=== PATIENT | female | born 1955 | race Caucasian/White ===

== ENCOUNTER 2019-06-10 17:11 | Inpatient (IN) | payer MEDICAID ==
[~2019-06-10] VITALS: Ht 167.6 cm; Wt 87.6 kg
[2019-06-10 19:12] LABS: Basophils # (auto) 0.1 uL; Basophils % (auto) 0.5 % (0.0-2.0); Eosinophils # (auto) 0 uL; Eosinophils % (auto) 0.1 % (0.0-7.0); Hematocrit 49.4 % (36.0-46.0); Hemoglobin 17.2 g/dL (12.2-16.2); Lymphocytes # (auto) 1.1 uL; Lymphocytes % (auto) 7.6 % (10.0-50.0); Mean Corpuscular Hemoglobin 33.2 pg (28.0-32.0); Mean Corpuscular Hgb Conc. 34.9 g/dL (32.0-36.0); Mean Corpuscular Volume 95.2 fL (80.0-100.0); Monocytes % (auto) 7.2 % (0.0-12.0); Neutrophils % (auto) 84.6 % (37.0-80.0); Nucleated Red Blood Cells % 0.1 %; Platelet Count (auto) 253 10^3/uL (140-450); Red Cell Distribution Width 13.7 % (11.8-14.3); White Blood Cell 14.2 10^3/uL (4.4-10.8)
[2019-06-10 19:31] LABS: Albumin 3.2 g/dL (3.4-5.0); Anion Gap 7 (5-15); Blood Urea Nitrogen 8 mg/dL (7-18); Calcium 8.6 mg/dL (8.5-10.1); Carbon Dioxide 31 mmol/L (21-32); Chloride 94 mmol/L (98-107); Glucose 104 mg/dL (74-106); Potassium 3.3 mmol/L (3.5-5.1); Sodium 132 mmol/L (136-145)
[2019-06-10 19:36] LABS: Alanine Aminotransferase 18 U/L (13-56); Alkaline Phosphatase 99 U/L (45-117); Aspartate Aminotransferase 19 U/L (15-37); BUN/Creatinine Ratio 14.8; Bilirubin, Total 0.7 mg/dL (0.2-1.0); GFR African American 147 mL/min; GFR Non-African American 122 mL/min; Total Protein 6.7 g/dL (6.4-8.2)
[2019-06-10] MEDS ORDERED: ONDANSETRON HCL 4 MG/2 ML VIAL IV ONE (20:15)
[2019-06-10] MEDS ORDERED: MORPHINE SULFATE 4 MG/ML SYR/VIAL IV ONE (20:15)
[2019-06-10 22:21] LABS: Urine Bacteria NONE SEEN /hpf (None Seen); Urine Blood Negative /uL (Negative); Urine Specific Gravity 1.009 (1.001-1.035); Urine WBC 6 /hpf (0 - 5)
[2019-06-11] MEDS ORDERED: MAGNESIUM CITRATE SOLUTION 300 ML BTL PO ONE (02:15)
[2019-06-11] MEDS ORDERED: LACTULOSE 20Gm/30ML SOLN PO ONE (02:15)
[2019-06-11] MEDS ORDERED: ACETAMINOPHEN 500 MG TAB PO PRN (04:30)
[2019-06-11] MEDS ORDERED: HYDROcodone-ACET 5/325MG TAB PO PRN (04:30)
[2019-06-11] MEDS ORDERED: ONDANSETRON HCL 4 MG/2 ML VIAL IV PRN (04:30)
[2019-06-11 06:59] LABS: Basophils # (auto) 0 uL; Basophils % (auto) 0.4 % (0.0-2.0); Eosinophils # (auto) 0 uL; Eosinophils % (auto) 0.2 % (0.0-7.0); Hematocrit 46.2 % (36.0-46.0); Hemoglobin 16.1 g/dL (12.2-16.2); Lymphocytes % (auto) 8.9 % (10.0-50.0); Mean Corpuscular Hemoglobin 33.3 pg (28.0-32.0); Mean Corpuscular Hgb Conc. 34.8 g/dL (32.0-36.0); Mean Corpuscular Volume 95.6 fL (80.0-100.0); Neutrophils # (auto) 9.1 uL; Neutrophils % (auto) 81.5 % (37.0-80.0); Nucleated Red Blood Cells % 0.1 %; Platelet Count (auto) 228 10^3/uL (140-450); Red Blood Cells 4.84 10^6/uL (4.0-5.20); Red Cell Distribution Width 13.8 % (11.8-14.3); White Blood Cell 11.1 10^3/uL (4.4-10.8)
[2019-06-11] MEDS ORDERED: POTASSIUM CHL 20 Meq TABLET PO ONE ×2 (07:00→16:00)
[2019-06-11 07:37] LABS: Alcohol, Urine < 3.0 mg/dL (0-5); Amphetamine Screen, Urine NEGATIVE (NEGATIVE); Barbiturate Scree,Urine NEGATIVE (NEGATIVE); Benzodiazephine Screen, Urine NEGATIVE (NEGATIVE); Cannabinoid Screen, Urine POSITIVE (NEGATIVE); Cocaine Screen, Urine NEGATIVE (NEGATIVE); Opiate Scree,Urine NEGATIVE (NEGATIVE); Phencyclidine Screen, Urine NEGATIVE (NEGATIVE)
[2019-06-11 08:04] LABS: BUN/Creatinine Ratio 18.5; Calcium 8.5 mg/dL (8.5-10.1); Potassium 3.4 mmol/L (3.5-5.1)
--- NOTE | 2019-06-11 08:30 | NUR ---
TELE ADMIT PATIENT WAS ADMITTED TO THE FLOOR AROUND 0800. SHE IS AWAKE, ALERT, AND ORIENTED. SHE IS LYING FLAT IN BED DUE TO REPORTS BY PATIENT OF A TAILBONE FRACTURE WELL A LEFT KNEE AND ANKLE FRACTURE. PATIENT USES A BEDPAN. SHE IS UNABLE TO WALK AT THIS TIME BUT STATES THAT SHE USES A WALKER AT HOME. SHE STATES SHE DOES NOT USE OXYGEN AT HOME, BUT HER O2 SATS ON ROOM AIR WERE IN THE 70'S. THIS NURSE PUT HER ON 2L O2 VIA NC AND WILL CONTINUE TO MONITOR HER. SHE STATED "MAYBE THAT'S WHY I FELL". ORIENTED PATIENT TO ROOM, BED, AND CALL LIGHT. INSTRUCTED HER TO CALL WHEN SHE NEEDS SOMETHING OR NEEDS TO USE THE BEDPAN.
[2019-06-11] MEDS: LEVOTHYROXINE SODIUM 50 MCG TAB PO SCH (08:51)
[2019-06-11 09:00] VITALS: BP 120/88
[2019-06-11] MEDS: LOSARTAN POTASSIUM 50 MG TAB PO SCH (09:50)
[2019-06-11] MEDS: cefTRIAXone 1GM/50ML D5W 50 ML IV SCH (09:50)
[2019-06-11] MEDS: risperiDONE 1 MG TAB PO SCH (09:50)
[2019-06-11] MEDS: PANTOPRAZOLE 40 MG TAB PO SCH (09:50)
[2019-06-11] MEDS: DOCUSATE SOD 100 MG CAP PO SCH ×2 (09:50→21:28)
[2019-06-11] MEDS: VENLAFAXINE HCL 37.5MG TABLET PO SCH ×2 (09:50→21:26)
[2019-06-11] MEDS: MORPHINE SULF INJ 2 MG/ML SYRINGE 1ML IV PRN ×2 (10:15→20:22)
[2019-06-11] MEDS ORDERED: RIS1T PO (10:35)
[2019-06-11] MEDS ORDERED: PRAV20TA3 PO (10:35)
[2019-06-11] MEDS ORDERED: GABA300C10 PO (10:35)
[2019-06-11] MEDS ORDERED: TRAZ100T2 PO (10:35)
[2019-06-11] MEDS ORDERED: POM PO (10:35)
[2019-06-11] MEDS ORDERED: CYCL1TAB18 PO (10:35)
[2019-06-11] MEDS ORDERED: VENL150C58 PO (10:35)
[2019-06-11] MEDS ORDERED: RISP4TAB53 PO (10:35)
[2019-06-11] MEDS ORDERED: LOSA-69 PO (10:35)
[2019-06-11] MEDS ORDERED: CHOL400T21 PO (10:35)
[2019-06-11 10:36] VITALS: BP 120/88
[2019-06-11 13:00] VITALS: BP 137/72
[2019-06-11 17:00] VITALS: BP 144/95
--- NOTE | 2019-06-11 19:40 | NUR ---
Opening Shift Note Assumed care of patient, awake and alert. No S/S of distress. Complained of tail bone pain. Discussed on POC and to be NPO after MN. Instructed to call for assist PRN, patient verbalized understanding, call light within reach, bed alarm on, will continue to monitor for changes Q1hr and PRN.
[2019-06-11 20:00] VITALS: BP 142/85
[2019-06-11] MEDS: traZODone HCL 50 MG TAB PO SCH (21:26)
[2019-06-11 22:00] VITALS: BP 142/85
[2019-06-12 05:00] VITALS: BP 151/82
[2019-06-12] MEDS: MORPHINE SULF INJ 2 MG/ML SYRINGE 1ML IV PRN ×3 (05:34→21:07)
--- NOTE | 2019-06-12 05:35 | NUR ---
IV insertion IV access obtained, via clean sterile technique by inserting 22 gauge catheter at after [1] attempt(s). IV secured properly. No trauma to site. Patient tolerated well. NOTE: []
[2019-06-12] MEDS: LEVOTHYROXINE SODIUM 50 MCG TAB PO SCH (06:13)
--- NOTE | 2019-06-12 07:30 | NUR ---
Opening Shift Note Report received and assumed care of patient, awake and alert. No S/S of distress/SOB or pain. Instructed on POC and nursing routines,pain management and expected procedure,instructed to call for assistance. will continue to monitor for changes Q1hr and PRN.
[2019-06-12 09:21] VITALS: BP 151/82
[2019-06-12] MEDS: cefTRIAXone 1GM/50ML D5W 50 ML IV SCH (09:51)
[2019-06-12] MEDS: risperiDONE 1 MG TAB PO SCH (09:52)
[2019-06-12] MEDS: LOSARTAN POTASSIUM 50 MG TAB PO SCH (09:52)
[2019-06-12] MEDS: PANTOPRAZOLE 40 MG TAB PO SCH (09:52)
[2019-06-12] MEDS: ENOXAPARIN SOD 40 MG/0.4 ML SYRINGE SC SCH (09:53)
[2019-06-12] MEDS: DOCUSATE SOD 100 MG CAP PO SCH ×2 (09:53→21:06)
[2019-06-12] MEDS: VENLAFAXINE HCL 37.5MG TABLET PO SCH ×2 (09:53→21:06)
--- NOTE | 2019-06-12 10:39 | NUR ---
Received referral to see pt as she wanted information on rehab and smoking cessation. Pt is a 63 yr ld female who is alert and oriented times 3. Pt speech is somewhat slurred. Pt is interested in pain management. Pt states she has significant pain and that is why she somes to the ER frequently du to severe pain. Explained to pt that she would have to go to her primary to obtain a prescription to the pain center. Pt states she has severe pain and it is not resolving. Unable to find a smoking cessation program in the area.
--- NOTE | 2019-06-12 13:20 | NUR ---
DR. KLEIN (ORTHOPEDIC) HERE TO SEE AND EXAMINED PATIENT,STATED NO SURGERY NEEDED FRACTURE WILL HEAL ITSELF,TO FOLLOW UP IN ONE WEEK IN HIS OFFICE ONCE PATIENT DISCHARGE.RECEIVED ORDER TO CONSULT CHAIN SPLITTER FOR WALKER WITH SIT AND CAM BOOT.
--- NOTE | 2019-06-12 13:50 | NUR ---
INFORMED OF DR. AGUILAR (ORTHOPEDICS) PLAN OF CARE, RECEIVED ORDER FOR P.T. EVALUATION AND DIET.
[2019-06-12 14:09] VITALS: BP 146/81
--- NOTE | 2019-06-12 15:45 | NUR ---
[facility] HERE TO EVALUATE PATIENT.
[2019-06-12 16:32] VITALS: BP 160/98
--- NOTE | 2019-06-12 16:35 | NUR ---
SEEN DISCHARGE ORDER OF DR. JOHNSON,PAGED AND SPOKE TO DR. JOHNSON RE P.T. RECOMMENDATION FOR PATIENT TO GO TO SNF.RECEIVED ORDER TO CANCELL DISCHARGE.
--- NOTE | 2019-06-12 16:45 | NUR ---
MD CALLED DR AGUILAR CALLED RECEIVED ORDER FOR MRI OF THE LEFT ANKLE,SEE ORDER WRITTEN.
--- NOTE | 2019-06-12 18:57 | NUR ---
STATUS UNCHANGED NO DISTRESS ,NO DISCOMFORT
--- NOTE | 2019-06-12 19:30 | NUR ---
Opening Shift Note Assumed care of patient, awake and alert. No S/S of distress. Still complained of tail bone pain. Updated on POC. Instructed to call for assist PRN, patient verbalized understanding, call light within reach, bed alarm on, will continue to monitor for changes Q1hr and PRN.
[2019-06-12 22:00] VITALS: BP 133/78
[2019-06-12] MEDS: traZODone HCL 50 MG TAB PO SCH (22:23)
--- NOTE | 2019-06-12 23:00 | NUR ---
Judge catheter insertion Patient assessed and determined to be in need of judge catheter. Noted order from MD. Patient educated on catheter and reason for insertion. All questions answered. Judge catheter 16 guage Yi inserted with clean sterile technique. Patient tolerated well.
[2019-06-13] MEDS: MORPHINE SULF INJ 2 MG/ML SYRINGE 1ML IV PRN ×5 (02:38→23:53)
[2019-06-13 05:00] VITALS: BP 153/78
[2019-06-13 06:05] LABS: Calcium 8.6 mg/dL (8.5-10.1)
[2019-06-13 06:17] LABS: BUN/Creatinine Ratio 24.4
--- NOTE | 2019-06-13 07:15 | NUR ---
Opening Shift Note Report received and assumed care of patient, awake and alert. No S/S of distress/SOB or pain. Instructed on POC and nursing routines and expected procedure,instructed to call for assistance.will continue to monitor for changes Q1hr and PRN.
[2019-06-13 09:00] VITALS: BP 149/81
--- NOTE | 2019-06-13 09:30 | NUR ---
PHYSICAL THERAPY AT BEDSIDE UNABLE TO TOLERATE ACTIVITY
[2019-06-13] MEDS: ENOXAPARIN SOD 40 MG/0.4 ML SYRINGE SC SCH (09:44)
[2019-06-13] MEDS: amLODIPine BESYLATE 5 MG TAB PO SCH (09:46)
[2019-06-13] MEDS: PANTOPRAZOLE 40 MG TAB PO SCH (09:46)
[2019-06-13] MEDS: LOSARTAN POTASSIUM 50 MG TAB PO SCH (09:46)
[2019-06-13] MEDS: DOCUSATE SOD 100 MG CAP PO SCH ×2 (09:46→21:13)
[2019-06-13] MEDS: VENLAFAXINE HCL 37.5MG TABLET PO SCH ×2 (09:46→21:13)
[2019-06-13] MEDS ORDERED: LORazepam 2MG/ML-1ML VIAL IV PRN (10:15)
--- NOTE | 2019-06-13 10:15 | NUR ---
TO MRI DEPT. FOR MRI LEFT ANKLE
--- NOTE | 2019-06-13 11:20 | NUR ---
RECEIVED FROM MRI VIA [facility],TOLERATED WELL PER OFFICE MOVER.
[2019-06-13] MEDS: risperiDONE 1 MG TAB PO SCH (12:16)
[2019-06-13 13:00] VITALS: BP 150/96
--- NOTE | 2019-06-13 15:10 | NUR ---
MD VISIT DR. JOHNSON HERE TO SEE AND EXAMINED PATIENT,REVIEWED AND EXPLAIN TO PATIENT AND MRI REPORT,EXPLAIN TO PATIENT AND POSSIBLE NEEDING TO GO TO SNF DEPENDS ON PHYSICAL THERAPY RECOMMENDATION. EXPLAIN TO PATIENT IMPORTANCE OF WEARING CAM BOOT,CAM BOOT GIVEN TO WITH WALKER THAT WAS DELIVERED AT BEDSIDE.
--- NOTE | 2019-06-13 15:11 | NUR ---
Per SS consult for rollator and cam boot. Contacted and faxed medical records to [facility] and [facility]. [facility] and [facility] are not contract with [facility] group [facility] [employer] ([employer]). Per Cruz from [facility] referral was received and reviewed and will call back with a time to drop of at bed side. Per Edenilson from [facility] deliver time will be between the hours 13:00-15:00. Per Edenilson from [facility] Pt accepted Rollator however refused cam boot. Informed RN Ayaka. Addendum: 06/13/19 at 1526 by CALOS BRAY Amended: Links added.
--- NOTE | 2019-06-13 15:20 | NUR ---
DR. JOHNSON SEEN AND REVIEWED P.T. RECOMMENDATIONS.
[2019-06-13 17:00] VITALS: BP 152/85
--- NOTE | 2019-06-13 19:45 | NUR ---
RECEIVED PATIENT IN BED, AAOX4. NO DISTRESS NOTED. INTRODUCED MYSELF TO THE PATIENT. DENIES SOB, PAIN NOW. MILD LEFT LEG PAIN, BUT TOLERABLE FOR NOW. POCS DISCUSSED WITH PATIENT AND SHOWED UNDERSTANDING. MILD LEFT LEG WEAKNESS NOTED. SIDE RAILS UP. CALL LIGHT/TABLE IN REACH. KEPT COMFORTABLE.
[2019-06-13] MEDS: traZODone HCL 50 MG TAB PO SCH (21:13)
[2019-06-13 21:39] VITALS: BP 138/56
[2019-06-14] MEDS: MORPHINE SULF INJ 2 MG/ML SYRINGE 1ML IV PRN ×4 (05:00→20:16)
[2019-06-14 05:34] VITALS: BP 146/91
--- NOTE | 2019-06-14 06:08 | NUR ---
ON BED, ASLEEP. STABLE. NO DISTRESS NOTED. FOR MORE CARE AND MANAGEMENT.
--- NOTE | 2019-06-14 08:30 | NUR ---
Opening Shift Note Assumed care of patient, awake and alert. No S/S of distress/SOB or pain. Instructed on POC and to call for assist PRN, will continue to monitor for changes Q1hr and PRN.
[2019-06-14 09:00] VITALS: BP 151/90
[2019-06-14] MEDS: DOCUSATE SOD 100 MG CAP PO SCH ×2 (09:36→21:05)
[2019-06-14] MEDS: LOSARTAN POTASSIUM 50 MG TAB PO SCH (09:37)
[2019-06-14] MEDS: amLODIPine BESYLATE 5 MG TAB PO SCH (09:38)
[2019-06-14] MEDS: VENLAFAXINE HCL 37.5MG TABLET PO SCH ×2 (09:38→21:05)
[2019-06-14] MEDS: ENOXAPARIN SOD 40 MG/0.4 ML SYRINGE SC SCH (09:39)
[2019-06-14] MEDS: PANTOPRAZOLE 40 MG TAB PO SCH (09:39)
[2019-06-14] MEDS: risperiDONE 1 MG TAB PO SCH (09:54)
--- NOTE | 2019-06-14 09:55 | NUR ---
WALKER AND BOOT AT BEDSIDE.
--- NOTE | 2019-06-14 11:36 | NUR ---
PT Patient refused to be OOB or do PT during morning visit with c/o pain to her tail bone. Patient also stated that she already rolled side to side and lifted her left before this PTT came. Addendum: 06/14/19 at 1137 by MARLON JIMENEZ PTT Amended: Links added.
[2019-06-14 12:31] VITALS: BP 144/88
[2019-06-14 17:00] VITALS: BP 157/88
--- NOTE | 2019-06-14 18:41 | NUR ---
Per SS consult for SNF placement. Contacted all three facilities [facility], [facility] and [facility]. Per Yana from [facility] Ph: ) ph:) fax: ( [phone]) she will need authorization in order for her to take pt. Informed ALISHA Almeida for authorization. I will follow up tomorrow
--- NOTE | 2019-06-14 19:35 | NUR ---
Opening Shift Note Assumed care of patient, awake and alert. No S/S of distress/SOB but c/o pain, will medicate per md order. Reilly draining clear, yellow urine to gravity. Bed locked in lowest position, side rails upx2, call light within reach. Instructed on POC and to call for assist PRN, will continue to monitor for changes Q1hr and PRN.
[2019-06-14] MEDS: traZODone HCL 50 MG TAB PO SCH (21:05)
[2019-06-14 21:33] VITALS: BP 146/85
[2019-06-15] MEDS: MORPHINE SULF INJ 2 MG/ML SYRINGE 1ML IV PRN ×4 (00:16→15:44)
[2019-06-15 05:40] VITALS: BP 145/84
--- NOTE | 2019-06-15 08:20 | NUR ---
Opening Shift Note Assumed care of patient, awake and alert. No S/S of distress/SOB. Instructed on POC and to call for assist PRN, will continue to monitor for changes Q1hr and PRN.
[2019-06-15 09:00] VITALS: BP 153/83
[2019-06-15] MEDS: DOCUSATE SOD 100 MG CAP PO SCH (09:14)
[2019-06-15] MEDS: PANTOPRAZOLE 40 MG TAB PO SCH (09:15)
[2019-06-15] MEDS: amLODIPine BESYLATE 5 MG TAB PO SCH (09:16)
[2019-06-15] MEDS: VENLAFAXINE HCL 37.5MG TABLET PO SCH (09:18)
[2019-06-15] MEDS: LOSARTAN POTASSIUM 50 MG TAB PO SCH (09:18)
[2019-06-15] MEDS: ENOXAPARIN SOD 40 MG/0.4 ML SYRINGE SC SCH (09:19)
--- NOTE | 2019-06-15 09:42 | NUR ---
PHYSICAL THERAPY REFUSED Patient educated on importance of PT and still continues to refuse to get up verbalizing she will only do bed exercises.
--- NOTE | 2019-06-15 12:10 | NUR ---
ROUNDING Dr Honeycutt rounding on patient. Transfer papers filled out, discharge order for SNF renewed.
[2019-06-15 13:00] VITALS: BP 142/83
--- NOTE | 2019-06-15 14:40 | NUR ---
Phone message left for Anna with manager social services to get transfer details.
--- NOTE | 2019-06-15 15:01 | NUR ---
[employer] SUPERINTENDENT PAGED FOR TRANSFER DETAILS
[2019-06-15] MEDS: risperiDONE 1 MG TAB PO SCH (15:44)
[2019-06-15 16:06] VITALS: BP 142/83
--- NOTE | 2019-06-15 16:15 | NUR ---
REPORT CALLED TO LEXI JOYCE GIVEN TO NURSE RADHA
--- NOTE | 2019-06-15 16:30 | NUR ---
DISCHARGE Discharge instructions given as ordered. [facility] accepted patient and patient will follow up with Dr Weston, accepting MD. Encourage to follow up with PMD at discharge and Dr Tripp as instructed. All questions and concerns addressed. Patient verbalized understanding. Medication reconciliation form completed and copy given to patient. IV removed with catheter intact, pressure dressing applied. Reilly catheter to remain in place. Telemetry unit returned to ICU.
[2019-06-15 17:00] VITALS: BP 155/86
--- NOTE | 2019-06-15 17:21 | NUR ---
SNF PLACEMENT RN spoke with Agency Recruiter Anna. [employer] to transport patient, machine pecan picker time 17:00. Patient going to [facility] room 24A.
--- NOTE | 2019-06-15 17:30 | NUR ---
D/C planning Per consult for SNF placement. Contacted all three facilities and faxed medical records [facility], [facility] and [facility]. [place] and [facility] are not contract with [facility] group. Per Beronica from [facility] Pt has been accepted to room [address] MD Dr[address] Weston. Contacted [facility] transportation Ph: ) faxed medical records. Per Adrianne from [facility] transportation time will be [employer] Ph: ) at 17:00. Informed RN Francia at 15:00 for transportation time. CHRISTOPHER Coronado is working on authorization for SNF. Addendum: 06/16/19 at 0947 by CALOS BRAY Amended: Links added.
--- NOTE | 2019-06-15 18:22 | NUR ---
TRANSPORTATION Call placed to [facility] at [phone] to inquiry about transportation. Per account development representative no transport arranged. Will call marketing services manager.
--- NOTE | 2019-06-15 18:28 | NUR ---
Spoke with Substation Operator Anna, advised to hold discharge as transportation cannot be arranged. counseling services manager will follow up in morning.
--- NOTE | 2019-06-15 19:09 | NUR ---
TRANSPORT ARRIVED AIM transport arrived to take patient to [facility]. Phone call placed to charge poster and [facility], spoke with Luzmaria at [facility]. Luzmaria and charge poster verified ok to discharge patient. Patient agreed and patient called Nirav to make aware. Patient left unit via gurney.
== END 2019-06-15 19:10 | DRG 342 ==
LOC: EDBD 17:11 → ER 17:14 → TELE 17:15 → TELE-WESTW 06-11 08:26
PROVIDERS: ADMIT Nurse Practitioner Family; ATTEND Internal Medicine Nephrology
DX: S82.832A Other fracture of upper and lower end of left fibula, initial encounter for closed fracture (principal); E87.1 Hypo-osmolality and hyponatremia; E87.6 Hypokalemia; E78.5 Hyperlipidemia, unspecified; F43.10 Post-traumatic stress disorder, unspecified; I10 Essential (primary) hypertension; W18.30XA Fall on same level, unspecified, initial encounter; E03.9 Hypothyroidism, unspecified; F31.9 Bipolar disorder, unspecified; K59.00 Constipation, unspecified; M48.56XA Collapsed vertebra, not elsewhere classified, lumbar region, initial encounter for fracture; N20.0 Calculus of kidney; S39.012A Strain of muscle, fascia and tendon of lower back, initial encounter; W18.39XA Other fall on same level, initial encounter; Y93.01 Activity, walking, marching and hiking; Z82.49 Family history of ischemic heart disease and other diseases of the circulatory system; Y92.89 Other specified places as the place of occurrence of the external cause; Y99.8 Other external cause status
CPT/HCPCS: 36415; 70450; 72192; 73590; 73610; 73721; 74176; 80048; 80053; 80307; 81001; 84443; 84484; 85025; 87081; 96374; 96375; 97110; 97163; 97530; G0378; J0696; J2405